=== PATIENT | male | born 1930 | race Two or more races ===

== ENCOUNTER 2018-06-09 15:38 | Inpatient (IN) | payer OTHER, MEDICAID ==
[~2018-06-09] VITALS: Ht 172.7 cm; Wt 90.7 kg
[2018-06-09] MEDS ORDERED: SODIUM CHLORIDE 0.9% 500 ML IV ONE (18:00)
[2018-06-09 18:35] LABS: BASOPHILS % 0.5 % (0.0-2.0); EOSINOPHILS % 0.3 % (0.0-5.0); HEMATOCRIT. 47.2 % (42.0-52.0); HEMOGLOBIN. 15.6 g/dL (14.0-18.0); LYMPHOCYTES % 15.7 % (20.0-50.0); MEAN CORPUSCULAR HEMOGLOBIN 32.9 pg (28.0-32.0); MEAN CORPUSCULAR VOLUME 99.8 fL (80.0-94.0); MEAN PLATELET VOLUME 8.5 fl (7.4-10.4); MONOCYTES % 8.7 % (2.0-8.0); NEUTROPHILS % 74.8 % (40.0-76.0); PLATELET 150 x1000/uL (130-400); RED BLOOD CELL COUNT 4.73 mill/uL (4.7-6.1); RED CELL DISTRIBUTION WIDTH 14.1 % (11.6-14.6)
[2018-06-09 18:41] LABS: CHLORIDE 108 mEq/L (98-107)
[2018-06-09] MEDS ORDERED: HYDROCODONE/ACETAMINOPHEN 5/325MG TABLET PO ONE (21:30)
[2018-06-10] MEDS ORDERED: CLONIDINE 0.1MG TABLET PO PRN (02:15)
[2018-06-10] MEDS ORDERED: NA PHOS,M-B/NA PHOS,DI-BA ENEMA 118ML PR PRN (02:15)
[2018-06-10] MEDS ORDERED: HYDROCODONE/ACETAMINOPHEN 5/325MG TABLET PO PRN (02:15)
[2018-06-10] MEDS ORDERED: GUAIFENESIN 200MG/10ML SUGAR FREE UDC PO PRN (02:15)
[2018-06-10] MEDS ORDERED: ACETAMINOPHEN 325MG TABLET PO PRN (02:15)
[2018-06-10] MEDS ORDERED: HYDROMORPHONE HCL/PF 2MG/ML CPJ IV PRN (02:15)
[2018-06-10] MEDS ORDERED: DOCUSATE SODIUM 100MG CAPSULE PO PRN (02:15)
[2018-06-10] MEDS ORDERED: ONDANSETRON HCL 4MG/2ML INJ IV PRN (02:15)
[2018-06-10 05:31] VITALS: BP 121/65
[2018-06-10 08:00] VITALS: BP 107/56
[2018-06-10] MEDS ORDERED: MIDO10TA PO (08:21)
[2018-06-10] MEDS ORDERED: GLIP5TAB12 PO (08:21)
[2018-06-10] MEDS ORDERED: ASCO100T12 PO (08:21)
[2018-06-10] MEDS ORDERED: ERGO400C MT (08:21)
[2018-06-10] MEDS ORDERED: WARF6TAB48 PO (08:21)
[2018-06-10] MEDS ORDERED: ATOR20TA65 PO (08:21)
[2018-06-10] MEDS: AMLODIPINE 10MG TABLET PO SCH (09:00)
[2018-06-10] MEDS: ENOXAPARIN 40MG/0.4ML SYR SUBCUT SCH (09:40)
[2018-06-10] MEDS ORDERED: SODIUM CHLORIDE 0.9% 500 ML IV ONE (11:45)
[2018-06-10] MEDS: CYCLOBENZAPRINE 10MG TABLET PO SCH ×2 (13:12→21:17)
[2018-06-10 20:00] VITALS: BP 111/53
[2018-06-11] VITALS: BP 117/55
[2018-06-11 04:00] VITALS: BP 119/61
[2018-06-11 06:21] LABS: BASOPHILS % 0.7 % (0.0-2.0); EOSINOPHILS % 2.6 % (0.0-5.0); HEMATOCRIT. 41.9 % (42.0-52.0); HEMOGLOBIN. 13.8 g/dL (14.0-18.0); LYMPHOCYTES % 29.9 % (20.0-50.0); MEAN CORPUSCULAR HEMOGLOBIN 32.9 pg (28.0-32.0); MEAN CORPUSCULAR VOLUME 99.9 fL (80.0-94.0); MEAN PLATELET VOLUME 9.1 fl (7.4-10.4); MONOCYTES % 10.4 % (2.0-8.0); NEUTROPHILS % 56.4 % (40.0-76.0); PLATELET 149 x1000/uL (130-400); RED BLOOD CELL COUNT 4.19 mill/uL (4.7-6.1); RED CELL DISTRIBUTION WIDTH 14.1 % (11.6-14.6)
[2018-06-11 06:24] LABS: CHLORIDE 115 mEq/L (98-107)
[2018-06-11] MEDS: CYCLOBENZAPRINE 10MG TABLET PO SCH ×2 (07:01→13:59)
[2018-06-11 08:00] VITALS: BP 120/62
[2018-06-11] MEDS: AMLODIPINE 10MG TABLET PO SCH (09:00)
[2018-06-11] MEDS: ENOXAPARIN 40MG/0.4ML SYR SUBCUT SCH (09:05)
[2018-06-11 19:30] VITALS: BP 135/76
[2018-06-11 19:40] VITALS: BP 122/65
== END 2018-06-11 20:15 | disposition home or self-care (01) | DRG 552 ==
LOC: ER 15:38 → 8WST 06-10 02:01 → EDBEDREQ 06-10 02:03 → SUPCPDRO 06-10 02:13 → ENRESERV 06-10 03:37
PROVIDERS: ADMIT Hospitalist; ATTEND Hospitalist
DX: M48.061 Spinal stenosis, lumbar region without neurogenic claudication (principal); M47.817 Spondylosis without myelopathy or radiculopathy, lumbosacral region; N18.9 Chronic kidney disease, unspecified; M51.36 Other intervertebral disc degeneration, lumbar region; M51.26 Other intervertebral disc displacement, lumbar region; C44.90 Unspecified malignant neoplasm of skin, unspecified; E86.0 Dehydration; I12.9 Hypertensive chronic kidney disease with stage 1 through stage 4 chronic kidney disease, or unspecified chronic kidney disease; D64.9 Anemia, unspecified; Z85.828 Personal history of other malignant neoplasm of skin; Z86.718 Personal history of other venous thrombosis and embolism
CPT/HCPCS: 36415; 72100; 72148; 83880; 84484; 93005; 93970; 96365; 96375; 97116; 97162; 97530; 99285; G0378; J1650; J7040